=== PATIENT | female | born 1995 | race Caucasian/White ===

== ENCOUNTER 2021-10-13 12:25 | Outpatient (REF) | payer OTHER, SELFPAY | END 2021-10-13 12:26 | disposition home or self-care (01) | LOC: HO.LAB 12:25 | PROVIDERS: Visit Provider Internal Medicine | DX: Z20.822 Contact with and (suspected) exposure to COVID-19 (principal) | CPT/HCPCS: C9803; U0003; U0005 ==

== ENCOUNTER 2022-05-26 13:55 | Outpatient (REF) | payer OTHER, SELFPAY ==
[2022-05-26 18:21] LABS: CT PCR NOT DETECTED (Not Detect.); NG PCR NOT DETECTED (Not Detect.)
== END 2022-05-26 13:56 | disposition home or self-care (01) ==
LOC: HO.LAB 13:55
PROVIDERS: Visit Provider Advanced Practice Midwife
DX: Z01.419 Encounter for gynecological examination (general) (routine) without abnormal findings (principal); Z11.3 Encounter for screening for infections with a predominantly sexual mode of transmission; Z11.8 Encounter for screening for other infectious and parasitic diseases
CPT/HCPCS: 87491; 87591; 88142

== ENCOUNTER 2022-09-20 12:23 | Outpatient (REF) | payer OTHER, SELFPAY ==
--- NOTE | ~2022-09-20 | XR_ITS ---
EXAMINATION: XR HAND WRIST, RIGHT XR HAND WRIST, LEFT CLINICAL INFORMATION: R20.2 - Paresthesia of skin COMPARISON: None. TECHNIQUE: Right hand and wrist are imaged in 3 large [id number]-[id number]-zqeh images. The right wrist is also imaged in a navicular view. There are a total of 4 projections. Left hand and wrist are imaged in 3 large [id number]-qg-svbv images. The left wrist is also imaged in a navicular view. There are a total of 4 projections. FINDINGS: Right: Normal bony mineralization. No periarticular demineralization. Ulnar variance is neutral. Pronator quadratus fat pad appears normal. The carpus shows no joint narrowing or erosive change or chondrocalcinosis. The MCP and interphalangeal joints are unremarkable. Left: Normal bony mineralization. No periarticular demineralization. Ulnar variance is neutral. Pronator quadratus fat pad appears normal. The carpus shows no joint narrowing or erosive change or chondrocalcinosis. The MCP and interphalangeal joints are unremarkable. XR/XR hand wrist LT IMPRESSION: 1. Normal bilateral wrist and bilateral hands. 2. No joint narrowing or erosive changes.
--- NOTE | ~2022-09-20 | XR_ITS ---
EXAMINATION: XR HAND WRIST, RIGHT XR HAND WRIST, LEFT CLINICAL INFORMATION: R20.2 - Paresthesia of skin COMPARISON: None. TECHNIQUE: Right hand and wrist are imaged in 3 large mitdb-pi-tzwn images. The right wrist is also imaged in a navicular view. There are a total of 4 projections. Left hand and wrist are imaged in 3 large [id number]-cg-hlps images. The left wrist is also imaged in a navicular view. There are a total of 4 projections. FINDINGS: Right: Normal bony mineralization. No periarticular demineralization. Ulnar variance is neutral. Pronator quadratus fat pad appears normal. The carpus shows no joint narrowing or erosive change or chondrocalcinosis. The MCP and interphalangeal joints are unremarkable. Left: Normal bony mineralization. No periarticular demineralization. Ulnar variance is neutral. Pronator quadratus fat pad appears normal. The carpus shows no joint narrowing or erosive change or chondrocalcinosis. The MCP and interphalangeal joints are unremarkable. XR/XR hand wrist RT IMPRESSION: 1. Normal bilateral wrist and bilateral hands. 2. No joint narrowing or erosive changes.
[2022-09-20 14:18] LABS: Hematocrit 40.2 % (37.0-47.0); Hemoglobin 12.9 g/dl (12.0-16.0); Mean Corpuscular HGB Conc 32.1 g/dl (31.0-35.0); Mean Corpuscular Hemoglobin 27.5 pg (27.0-33.0); Mean Corpuscular Volume 85.7 fL (80.0-98.0); Platelet Count 437 X10*3/uL (160-400); Red Blood Count 4.69 X10*6/uL (4.20-5.50); Red Cell Distribution Width 12.9 % (11.0-16.0)
[2022-09-20 14:52] LABS: Alanine Aminotransferase 15 U/L (0-31); Alkaline Phosphatase 88 U/L (39-117); Anion Gap 12 (12-20); Aspartate Amino Transferase 18 U/L (5-31); Bilirubin Total 0.4 mg/dL (0.0-1.0); Blood Urea Nitrogen 11 mg/dL (9-16); Calcium 9.2 mg/dL (8.4-10.2); Carbon Dioxide 26 mmol/L (22-29); Chloride 104 mmol/L (96-108); Estimated Glomerular Filt Rate > 60; Glucose Fasting 92 mg/dL (60-99); Potassium 4.3 mmol/L (3.3-5.1); Sodium 138 mmol/L (135-145); Total Protein 7.7 g/dL (6.5-8.0)
== END 2022-09-20 12:24 | disposition home or self-care (01) ==
LOC: HO.XRAY 12:23
PROVIDERS: PCP Physician Assistant; Visit Provider Physician Assistant
DX: M25.531 Pain in right wrist (principal); M25.532 Pain in left wrist; R20.2 Paresthesia of skin; Z13.1 Encounter for screening for diabetes mellitus; Z13.29 Encounter for screening for other suspected endocrine disorder
CPT/HCPCS: 36415; 73110; 73130; 80053; 84443; 85027

== ENCOUNTER → 2022-10-16 10:28 | Outpatient (BNVA) | payer OTHER, SELFPAY | PROVIDERS: PCP Physician Assistant; Visit Provider Orthopaedic Surgery | DX: M25.531 Pain in right wrist (principal); M25.532 Pain in left wrist; M79.641 Pain in right hand; M79.642 Pain in left hand | CPT/HCPCS: 99202 ==

== ENCOUNTER 2022-11-23 10:30 | Outpatient (RCR) | payer OTHER, SELFPAY ==
--- NOTE | 2022-10-26 13:43 | MHC.OT.EP ---
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 Thank you once again for your referral.
--- NOTE | 2022-11-23 17:10 | MHC.OT.DC ---
[address] [phone] F: [phone] Occupational Therapy Discharge Note Provider: Haydee Noel Diagnosis: Bilateral hand and wrist pain Date of Surgery: Date of Evaluation: 10/26/22 Date of Discharge: 11/23/22 Treatments to Date: 8 Cancellations to Date: 0 No Shows to Date: 0 Discharge Status: Achieved Goals Improved Function Independent with HEP Discharge Summary: Right hand edema improved and pain. 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 Electronically Signed By: Aleshia Piedra OT CHT CLT Reviewed/agree with student documentation: N/A Therapist: Please Sign and return to therapist, thank you for your referral.
== END 2022-11-23 17:11 | disposition home or self-care (01) ==
LOC: HO.OT 10:30
PROVIDERS: PCP Physician Assistant; Visit Provider Orthopaedic Surgery
DX: M25.531 Pain in right wrist (principal); M25.532 Pain in left wrist; M79.642 Pain in left hand; M79.641 Pain in right hand
CPT/HCPCS: 29125; 97035; 97110; 97140; 97166; 97760

== ENCOUNTER 2023-05-29 12:54 | Outpatient (REF) | payer OTHER, SELFPAY ==
[2023-05-29 18:41] LABS: CT PCR NOT DETECTED (Not Detect.); NG PCR NOT DETECTED (Not Detect.)
== END 2023-05-29 12:55 | disposition home or self-care (01) ==
LOC: HO.LNP 12:54
PROVIDERS: PCP Physician Assistant; Visit Provider Advanced Practice Midwife
DX: Z20.2 Contact with and (suspected) exposure to infections with a predominantly sexual mode of transmission (principal); N92.6 Irregular menstruation, unspecified; Z72.51 High risk heterosexual behavior
CPT/HCPCS: 0353U; 81025

== ENCOUNTER 2023-05-29 12:54 | Outpatient (AMB) | payer OTHER, SELFPAY ==
--- NOTE | 2023-05-29 12:55 | A.OFFVIS_ITS ---
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 Scribed for LUCY Barksdale by Lashell Albarado medical social consultant, on 05/29/2023 at 1:13 pm EST. [employer] P[employer] Manufacturing Supervisor: Corn[employer] Manufacturing Supervisor Present (Nikki) Allergies ziprasidone [Geodon] Adverse Reaction (Unknown, Verified 05/29/23 12:59) mouth get stuck open Is last menstrual period known: Yes Last menstrual period: 05/21/23 HPI HPI Comments History of Present Illness Details She is a premenopausal woman presenting for annual exam. She admits to eating healthy and tries to stay active with exercise. Reports irregular menses that skipped twice for 2 months and painful menses. Admits to acne. Denies hirsutism, vaginal itching and irritation. Currently sexually active. Does not use BC and is not interest in BC or at the moment, accepting if she is . Denies taking PNV. STD screening offered; she accepts. Denies family hx of breast, colon and ovarian cancer. Last pap smear 05/26/22 [facility] Medical History Acne CHRISTY (generalized anxiety disorder) History of unprotected sex Irregular menses MDD (major depressive disorder), recurrent episode, moderate Obese Potential exposure to STD Surgical History History of dental surgery Family History Father No problems noted. 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 Sexual orientation: Straight/Heterosexual Gender identity: Female Cognitive needs: No Hearing needs: No Vision needs: Yes (glasses) Female Reproductive History Menstrual Age of Menarche: 13 Duration of menses: 3-5 days Date of last menstrual period: 05/21/23 control method: none Total pregnancies: 0 Date of last pap smear: 05/26/22 (neg) Physical Exam Vital Signs: Last Vital Signs BP 120/72 05/29/23 12:56 BMI result Body Mass Index 37.3 Const General: cooperative, healthy appearing, no acute distress, well developed and alert Orientation/consciousness: patient oriented x3 HEENT Head: Yes normal to inspection Eyes General: appearance normal, both eyes and all related structures Neck Neck: Yes normal visual inspection Thyroid: Thyroid normal Chest Chest palpation & inspection: normal inspection of the chest Breast/axilla inspection: normal inspection of the breasts (no puckering, dimpling, peau de orange, retraction, discharge, masses) Breast/axilla palpation: normal palpation of the breasts Resp Effort & Inspection: normal respiratory effort GI Inspection: Yes normal to inspection Palpation (GI): Soft to palpation (to palpation) Rectal Exam - Female: deferred General: Yes bladder normal to inspection External Female Exam: normal external appearance and normal appearance of the urethra Speculum Exam - Vagina: normal appearance of the vagina, normal palpation and normal vaginal discharge Speculum Exam - Cervix: normal appearance of the cervix and normal palpation Bimanual exam- vagina & uterus: normal palpation and normal palpation Bimanual Exam- Adnexa, other: normal adnexae and no masses Skin General skin exam: no rashes or lesions noted Neuro General: patient oriented x3 Cognition (Neuro): normal cognition Extrem General: Yes normal to inspection Psych Attitude: cooperative Thought process: Normal thought process present Results AMB Test Urine AMB Test Urine Negative Last Edit by SKINNY Walker on 05/29/23 13:36 Results Reviewed Results Reviewed: Laboratory Last Values Tst Clinic Negative 05/29/23 13:22 Assessment & Plan Assessment & Plan (1) Encounter for well woman exam: Code(s): Z01.419 - Encounter for gynecological examination (general) (routine) without abnormal findings Plan: Discussed: Current recommendations for pap smears per ASCCP guidelines Breast awareness and periodic self breast exams. Maintaining a healthy lifestyle including a well balanced diet and routine exercise. BV testing and GC/CT panel done today. Await results and treat accordingly. Blood work and US ordered. PCOS testing due to irregular menses and acne. Discussed workup including labs and US to rule out PCOS. She is agreeable to plan. Labs and US ordered today. Will await results and treat accordingly. Return in 2 weeks for test results. PNV sent to pharmacy. Encouraged to use condoms for STD and prevention. Encouraged patient to sign up for patient portal. All of her questions and concerns were addressed to the best of my ability. RTO in one year for AG. (2) Acne: Code(s): L70.9 - Acne, unspecified (3) Irregular menses: Code(s): N92.6 - Irregular menstruation, unspecified (4) Potential exposure to STD: Code(s): Z20.2 - Contact with and (suspected) exposure to infections with a predominantly sexual mode of transmission (5) History of unprotected sex: Code(s): Z72.51 - High risk heterosexual behavior Orders: Orders CT NG by PCR Today Z20.2 - Contact with and (suspected) exposure to infections with a predominantly sexual mode of transmission 17 Hydroxyprogesterone Today L70.9 - Acne, unspecified, N92.6 - Irregular menstruation, unspecified DHEA Sulfate Today L70.9 - Acne, unspecified, N92.6 - Irregular menstruation, unspecified Follicle Stimulating Hormone Today L70.9 - Acne, unspecified, N92.6 - Irregular menstruation, unspecified HCG Quantitative Today L70.9 - Acne, unspecified, N92.6 - Irregular menstruation, unspecified Prolactin Today L70.9 - Acne, unspecified, N92.6 - Irregular menstruation, unspecified Testosterone, Free/Total Today L70.9 - Acne, unspecified, N92.6 - Irregular menstruation, unspecified US pelvic and transvaginal Today L70.9 - Acne, unspecified, N92.6 - Irregular menstruation, unspecified AMB HCG Urine Test Today N92.6 - Irregular menstruation, unspecified Coding Level of Care Code Est Pt Prev Care 18-39y(86162) Diagnoses Encounter for well woman exam Z01.419 Acne L70.9 Irregular menses N92.6 Potential exposure to STD Z20.2 History of unprotected sex Z72.51
[2023-05-29 12:56] VITALS: BP 120/72; BMI 37.3
== END 2023-05-29 13:41 | disposition home or self-care (01) ==
LOC: HO.HWS 12:54
PROVIDERS: PCP Physician Assistant; Visit Provider Advanced Practice Midwife
DX: Z01.419 Encounter for gynecological examination (general) (routine) without abnormal findings (principal); L70.9 Acne, unspecified; N92.6 Irregular menstruation, unspecified; Z20.2 Contact with and (suspected) exposure to infections with a predominantly sexual mode of transmission; Z72.51 High risk heterosexual behavior
CPT/HCPCS: 99395

== ENCOUNTER 2023-06-12 10:35 | Outpatient (REF) | payer OTHER, SELFPAY ==
--- NOTE | ~2023-06-12 | US_ITS ---
EXAMINATION: US PELVIS CLINICAL INFORMATION: Irregular menses. COMPARISON: None available. TECHNIQUE: Ultrasound of the pelvis is performed using both transabdominal and transvaginal transducers along with Doppler. Transvaginal imaging is performed due to inadequate visualization transabdominally. FINDINGS: UTERUS: The uterus is anteverted and measures 5.9 x 2.7 x 3.7 cm. The double wall endometrial thickness is 0.6 mm. There is a 2.2 x 1.9 x 1.9 cm mural/submucosal fibroid draping the endometrial cavity forward. ADNEXA: Both ovaries are visualized and appear normal. There is normal color flow to the adnexa. There is no ovarian torsion. There is no pelvic ascites or fluid collection. Right ovary measures 3.3 x 2.2 x 2.2 cm for a volume of 8.4 mL. Left ovary measures 2.5 x 1.8 x 2.5 cm for a volume of 5.9 mL. US/US pelvic and transvaginal IMPRESSION: Submucosal 2.2 cm fibroid.
== END 2023-06-12 10:36 | disposition home or self-care (01) ==
LOC: HO.US 10:35
PROVIDERS: PCP Physician Assistant; Visit Provider Advanced Practice Midwife
DX: N92.6 Irregular menstruation, unspecified (principal); L70.9 Acne, unspecified
CPT/HCPCS: 76830; 76856

== ENCOUNTER 2023-07-31 12:40 | Outpatient (AMB) | payer OTHER, SELFPAY ==
--- NOTE | 2023-07-31 13:02 | A.OFFVIS_ITS ---
Intake Vital Signs 07/31/23 13:03 Height 5 ft Weight 190 lb BMI 37.1 BP 120/72 Intake Visit Reasons: Ultrasound results Intake Note: The patient agreed to use of a anesthesiology medical doctor during this encounter. Scribed for LUCY Barksdale by Lashell Albarado anesthesiology medical doctor, on 07/31/2023 at 1:12 pm EST. Allergies ziprasidone [Geodon] Adverse Reaction (Unknown, Verified 07/31/23 13:05) mouth get stuck open Is last menstrual period known: Yes Last menstrual period: 05/21/23 HPI HPI Comments History of Present Illness Details She is here to discuss US results regarding irregular menses. Reports last menses was May. She has no questions or concerns today. Not on BC, prefers not to take any. She has not completed her labs, unaware that they were to be done already. [facility] Medical History Fibroids, submucosal History of unprotected sex Potential exposure to STD Irregular menses Acne CHRISTY (generalized anxiety disorder) MDD (major depressive disorder), recurrent episode, moderate Obese Surgical History History of dental surgery Family History Father No problems noted. 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 COMPARISON: None available. TECHNIQUE: Ultrasound of the pelvis is performed using both transabdominal and transvaginal transducers along with Doppler. Transvaginal imaging is performed due to inadequate visualization transabdominally. FINDINGS: UTERUS: The uterus is anteverted and measures 5.9 x 2.7 x 3.7 cm. The double wall endometrial thickness is 0.6 mm. There is a 2.2 x 1.9 x 1.9 cm mural/submucosal fibroid draping the endometrial cavity forward. ADNEXA: Both ovaries are visualized and appear normal. There is normal color flow to the adnexa. There is no ovarian torsion. There is no pelvic ascites or fluid collection. Right ovary measures 3.3 x 2.2 x 2.2 cm for a volume of 8.4 mL. Left ovary measures 2.5 x 1.8 x 2.5 cm for a volume of 5.9 mL. US/US pelvic and transvaginal IMPRESSION: Submucosal 2.2 cm fibroid. Assessment & Plan Assessment & Plan (1) Encounter to discuss test results: Code(s): Z71.2 - Person consulting for explanation of examination or test findings Plan: Discussed: US findings of; fibroid. Labs today incl: BHCG. Schedule follow up appt. for lab results. All of her questions and concerns were addressed to the best of my ability and shared decision making. She is agreeable to plan of care. (2) Fibroids, submucosal: Code(s): D25.0 - Submucous leiomyoma of uterus Plan: Leiomyoma: common pelvic neoplasm. Differential diagnosis-may include leiomyosarcoma which is a rare uterine sarcoma 3-7/100,000, difficult to distinguish from fibroids on ultrasound from uterine sarcoma's. Unlikely any single test will have a highly positive predictive value. Hysterectomy is not recommended for sole purpose of excluding malignant neoplasm. Report any PMB/AUB, pelvic pressure, bloating, or pain. (3) Irregular menses: Code(s): N92.6 - Irregular menstruation, unspecified Plan: Lab work ordered. Follow up for results. Coding Level of Care Code Est Pt Level 3 (18276) Diagnoses Encounter to discuss test results Z71.2 Fibroids, submucosal D25.0 Irregular menses N92.6
[2023-07-31 13:03] VITALS: BP 120/72; BMI 37.1
== END 2023-07-31 13:22 | disposition home or self-care (01) ==
PROVIDERS: PCP Physician Assistant; Visit Provider Advanced Practice Midwife
DX: Z71.2 Person consulting for explanation of examination or test findings (principal); D25.0 Submucous leiomyoma of uterus; N92.6 Irregular menstruation, unspecified
CPT/HCPCS: 99213

== ENCOUNTER 2023-07-31 12:40 | Outpatient (REF) | payer OTHER, SELFPAY ==
[2023-07-31 15:23] LABS: HCG Quantitative < 2 mIU/mL
[2023-08-02 04:42] LABS: DHEA Sulfate 199 mcg/dL (14-349); Follicle Stimulating Hormone 7.6 mIU/mL; Prolactin 8.3 ng/mL
[2023-08-05 16:24] LABS: Testosterone, Free 6.4 pg/mL (0.1-6.4); Testosterone, Total 27 ng/dL (2-45)
== END 2023-07-31 12:41 | disposition home or self-care (01) ==
LOC: HO.LAB 12:40
PROVIDERS: PCP Physician Assistant; Visit Provider Advanced Practice Midwife
DX: D25.0 Submucous leiomyoma of uterus (principal); N92.6 Irregular menstruation, unspecified; L70.9 Acne, unspecified
CPT/HCPCS: 36415; 82627; 83001; 83498; 84146; 84402; 84403; 84702; 99212

== ENCOUNTER 2023-08-22 07:24 | Outpatient (AMB) | payer OTHER, SELFPAY ==
[2023-08-22 07:29] VITALS: BP 118/66; BMI 37.0
--- NOTE | 2023-08-22 07:29 | A.OFFVIS_ITS ---
Intake Vital Signs 08/22/23 07:29 Height 5 ft Weight 189 lb 9.561 oz BMI 37.0 BP 118/66 Intake Visit Reasons: lab follow up [employer] Combination [employer] Required: No Information Interpreted: non-clinical & clinical Accompanied by: Self / Same As Patient Allergies ziprasidone [Geodon] Adverse Reaction (Unknown, Verified 08/22/23 07:29) mouth get stuck open HPI HPI Comments History of Present Illness Details She is here to discuss lab results. Reports she is not skipping her cycles for now for the past three months. Currently occasionally sexually active but has not been sexually active in the past few months. Reports irregular cycles over the last 2-3 years, correlating to her weight gain, overeating, unhealthy food choices with her stress. Reports she has a follow up with her PCP and is doing lab work in a couple of weeks. She is not interested in any hormone use at this time. [facility] Medical History Stress Fibroids, submucosal History of unprotected sex Potential exposure to STD Irregular menses Acne CHRISTY (generalized anxiety disorder) MDD (major depressive disorder), recurrent episode, moderate Obese Surgical History History of dental surgery Family History Father No problems noted. 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 Sexual orientation: Straight/Heterosexual Gender identity: Female Cognitive needs: No Hearing needs: No Vision needs: Yes (glasses) Female Reproductive History Menstrual Age of Menarche: 13 Physical Exam Vital Signs: Last Vital Signs BP 118/66 08/22/23 07:29 BMI result Body Mass Index 37.0 Const General: cooperative, healthy appearing, comfortable, no acute distress, well developed, alert and awake Results AMB Test Urine AMB Test Urine Negative Last Edit by SKINNY Darling on 08/22/23 08:15 Results Reviewed Results Reviewed: Laboratory Last Values Tst Clinic Negative 08/22/23 08:15 EXAMINATION: US PELVIS CLINICAL INFORMATION: Irregular menses. COMPARISON: None available. TECHNIQUE: Ultrasound of the pelvis is performed using both transabdominal and transvaginal transducers along with Doppler. Transvaginal imaging is performed due to inadequate visualization transabdominally. FINDINGS: UTERUS: The uterus is anteverted and measures 5.9 x 2.7 x 3.7 cm. The double wall endometrial thickness is 0.6 mm. There is a 2.2 x 1.9 x 1.9 cm mural/submucosal fibroid draping the endometrial cavity forward. ADNEXA: Both ovaries are visualized and appear normal. There is normal color flow to the adnexa. There is no ovarian torsion. There is no pelvic ascites or fluid collection. Right ovary measures 3.3 x 2.2 x 2.2 cm for a volume of 8.4 mL. Left ovary measures 2.5 x 1.8 x 2.5 cm for a volume of 5.9 mL. US/US pelvic and transvaginal IMPRESSION: Submucosal 2.2 cm fibroid. Laboratory Tests 07/31/23 13:35 FSH 7.6 Prolactin 8.3 Total Testosterone 27 Fr Testosterone Dialys 6.4 DHEA Sulfate 199 Beta HCG, Quant < 2 17-Hydroxyprogesterone 24 Assessment & Plan Assessment & Plan (1) Encounter to discuss test results: Code(s): Z71.2 - Person consulting for explanation of examination or test findings Plan: Discussed: Lab results: normal. Will need a TSH and CBC, agree's to complete with her PCP in a few weeks. US results: Submucosal 2.2 cm fibroid. (2) Irregular menses: Code(s): N92.6 - Irregular menstruation, unspecified Plan: Counseled re: half-way effect of anovulatory cycles, risks to developing atypical cells, leading to hyperplasia and possible malignancy. Preventative measures for regular cycling included: control, hormones for intermittent use, other-weight management for ideal BMI goals, to include a healthy diet such as Mediterranean diet and regular exercise. Always use condoms for and STI prevention. Follow up for menses if no cycle q2-3months. She declines any medical/hormonal therapy today and prefers to start weight loss for results. (3) Weight gain: Code(s): R63.5 - Abnormal weight gain (4) Stress: Code(s): F43.9 - Reaction to severe stress, unspecified Orders: Orders AMB HCG Urine Test Today Z32.02 - Encounter for test, result negative Coding Level of Care Code Est Pt Level 3 (90832) Diagnoses Encounter to discuss test results Z71.2 Irregular menses N92.6 Weight gain R63.5 Stress F43.9
== END 2023-08-22 08:09 | disposition home or self-care (01) ==
PROVIDERS: PCP Physician Assistant; Visit Provider Advanced Practice Midwife
DX: Z71.2 Person consulting for explanation of examination or test findings (principal); N92.6 Irregular menstruation, unspecified; R63.5 Abnormal weight gain; F43.9 Reaction to severe stress, unspecified; Z32.02 Encounter for pregnancy test, result negative
CPT/HCPCS: 99213

== ENCOUNTER → 2023-08-22 07:24 | Outpatient (BNVA) | payer OTHER, SELFPAY | PROVIDERS: PCP Physician Assistant; Visit Provider Advanced Practice Midwife | DX: Z71.2 Person consulting for explanation of examination or test findings (principal); N92.6 Irregular menstruation, unspecified; R63.5 Abnormal weight gain; F43.9 Reaction to severe stress, unspecified | CPT/HCPCS: 81025; 99212 ==

== ENCOUNTER 2023-11-09 09:37 | Outpatient (AMB) | payer OTHER, SELFPAY ==
--- NOTE | 2023-11-09 09:40 | MHC.OFFVIS ---
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 She started bleeding 10/27/2318-[id number]-[id number] bleeding heavy at time (thick pad change q 4hr.) heavy today. She denies any lightheadedness, dizziness, SOB. Has cramping, low back pain, Midol not helpful. [facility] Medical History Stress Fibroids, submucosal History of unprotected sex Potential exposure to STD Irregular menses Acne CHRISTY (generalized anxiety disorder) MDD (major depressive disorder), recurrent episode, moderate Obese Surgical History History of dental surgery Family History Father No problems noted. 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 Sexual orientation: Straight/Heterosexual Gender identity: Female Cognitive needs: No Hearing needs: No Vision needs: Yes (glasses) Female Reproductive History Menstrual Age of Menarche: 13 Review of Systems Const All systems reviewed & are unremarkable except as noted in HPI and below Physical Exam Vital Signs: Last Vital Signs BP 122/80 11/09/23 09:51 BMI result Body Mass Index 37.0 Const General: cooperative, healthy appearing and no acute distress Orientation/consciousness: patient oriented x3 GI Inspection: Yes normal to inspection Palpation (GI): Soft to palpation and Other GI palpation findings present (Nontender) Rectal Exam - Female: visual inspection normal General: Yes bladder normal to palpation External Female Exam: normal appearance of the urethra Speculum Exam - Vagina: normal appearance of the vagina, normal palpation, normal vaginal discharge and vaginal bleeding Speculum Exam - Cervix: normal appearance of the cervix and normal palpation Bimanual exam- vagina & uterus: normal bimanual exam, normal palpation, uterine size normal, bladder normal to palpation, normal palpation, uterine shape normal and non-tender Bimanual Exam- Adnexa, other: normal adnexae OB/external & speculum: vaginal bleeding Neuro General: patient oriented x3 Results AMB Test Urine AMB Test Urine Negative Last Edit by Meseret Cabrera CMA on 11/09/23 09:53 Assessment & Plan Assessment & Plan (1) Abnormal uterine bleeding (AUB): Code(s): N93.9 - Abnormal uterine and vaginal bleeding, unspecified Plan Discuss: Workup for AUB including repeat ultrasound, labs. PCOS workup in July was negative. Reviewed weight changes, stress factors for amenorrhea that can affect the menstrual cycle. Advised to try a ibuprofen 200 mg(3 tablets) every 6 hours with food to help with menstrual cramping while bleeding. She declines a prescription, reports she has this on hand at home. Reviewed warnings: Any prolonged heavy bleeding, lightheaded miss, dizziness shortness of breath, report to the emergency room immediately. Consider control for cycle control, plan further discussion at follow up. All of her questions and concerns were addressed to the best of my ability and shared decision making. She is agreeable to the plan of care. Orders: Orders Bacterial Vaginosis Panel Today N92.6 - Irregular menstruation, unspecified TSH reflex Free T4 Today N93.9 - Abnormal uterine and vaginal bleeding, unspecified Complete Blood Count no Diff Today N93.9 - Abnormal uterine and vaginal bleeding, unspecified AMB HCG Urine Test Today Z32.02 - Encounter for test, result negative CT NG by PCR Today N92.6 - Irregular menstruation, unspecified US pelvic and transvaginal Today D25.0 - Submucous leiomyoma of uterus, N93.9 - Abnormal uterine and vaginal bleeding, unspecified Coding Level of Care Code Est Pt Level 4 (51254) Diagnoses Abnormal uterine bleeding (AUB) N93.9
[2023-11-09 09:51] VITALS: BP 122/80; BMI 37.0
== END 2023-11-09 12:26 | disposition home or self-care (01) ==
LOC: HO.HWS 09:37
PROVIDERS: PCP Physician Assistant; Visit Provider Advanced Practice Midwife
DX: Z32.02 Encounter for pregnancy test, result negative (principal); N93.9 Abnormal uterine and vaginal bleeding, unspecified
CPT/HCPCS: 99214

== ENCOUNTER 2023-11-09 09:37 | Outpatient (REF) | payer OTHER, SELFPAY | END 2023-11-09 09:38 | disposition home or self-care (01) | LOC: HO.LNP 09:37 | PROVIDERS: PCP Physician Assistant; Visit Provider Advanced Practice Midwife | DX: Z32.02 Encounter for pregnancy test, result negative (principal); N93.9 Abnormal uterine and vaginal bleeding, unspecified | CPT/HCPCS: 81025; 99212 ==

== ENCOUNTER 2023-11-09 10:17 | Outpatient (REF) | payer OTHER, SELFPAY | END 2023-11-09 10:18 | disposition home or self-care (01) | LOC: HO.LAB 10:17 | PROVIDERS: PCP Physician Assistant; Visit Provider Advanced Practice Midwife | DX: N93.9 Abnormal uterine and vaginal bleeding, unspecified (principal); N92.6 Irregular menstruation, unspecified | CPT/HCPCS: 0353U; 84443; 85027; 87480; 87510; 87660 ==

== ENCOUNTER 2023-11-28 14:23 | Outpatient (REF) | payer OTHER, SELFPAY ==
--- NOTE | ~2023-11-28 | US_ITS ---
EXAMINATION: US PELVIS CLINICAL INFORMATION: Submucous leiomyoma of uterus LMP: 10/27/2023 COMPARISON: Pelvic ultrasound 06/12/2023 TECHNIQUE: Ultrasound of the pelvis is performed using both transabdominal and transvaginal transducers along with Doppler. Transvaginal imaging is performed due to inadequate visualization transabdominally. FINDINGS: Uterus: The uterus is anteverted and measures 7.3 x 3.5 x 4.6 cm. There is a 2.3 x 1.9 x 2.0 cm mural/submucosal fibroid impinging on the posterior wall of the endometrium. This appears to measure 2.2 x 1.9 x 1.9 cm. The endometrium measures 0.6 cm. Adnexa: Both ovaries are visualized. There is normal color flow to the adnexa. There is no ovarian torsion. There is no pelvic ascites or fluid collection. Both ovaries are normal in appearance Right ovary measures 3.2 x 1.9 x 2.2 cm. Volume 7.0 mL. Left ovary measures 2.7 x 2.2 x 1.7 cm. Volume 5.3 mL. US/US pelvic and transvaginal IMPRESSION: 1. 2.3 cm mural/submucosal fibroid impinging on the posterior wall of the endometrium. 2. Normal ovaries.
== END 2023-11-28 14:24 | disposition home or self-care (01) ==
LOC: HO.US 14:23
PROVIDERS: PCP Physician Assistant; Visit Provider Advanced Practice Midwife
DX: D25.0 Submucous leiomyoma of uterus (principal); N93.9 Abnormal uterine and vaginal bleeding, unspecified
CPT/HCPCS: 76830; 76856

== ENCOUNTER 2023-12-12 12:30 | Outpatient (AMB) | payer OTHER, SELFPAY ==
[2023-12-12 12:50] VITALS: BP 112/70; BMI 36.5
--- NOTE | 2023-12-12 12:50 | MHC.OFFVIS ---
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 History of uterine fibroid she reports her last period lasted approximately 3 weeks. She has not interested in control as she is planning a future . She has not currently taking vitamins. [facility] Medical History Stress Fibroids, submucosal History of unprotected sex Potential exposure to STD Irregular menses Acne CHRISTY (generalized anxiety disorder) MDD (major depressive disorder), recurrent episode, moderate Obese Surgical History History of dental surgery Family History Father No problems noted. 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 Sexual orientation: Straight/Heterosexual Gender identity: Female Cognitive needs: No Hearing needs: No Vision needs: Yes (glasses) Female Reproductive History Menstrual Age of Menarche: 13 Date of last menstrual period: 10/27/23 Review of Systems Const All systems reviewed & are unremarkable except as noted in HPI and below Endo Reports no additional complaints Physical Exam Vital Signs: Last Vital Signs BP 112/70 12/12/23 12:50 BMI result Body Mass Index 36.5 Const General: cooperative, healthy appearing and no acute distress Psych Appearance: well kempt Attitude: cooperative Thought process: Normal thought process present Assessment & Plan Assessment & Plan (1) Fibroids, submucosal: Comment: Counseled re: Leiomyoma: common pelvic neoplasm. Differential diagnosis-may include leiomyosarcoma which is a rare uterine sarcoma 3-7/100,000, difficult to distinguish from fibroids on ultrasound from uterine sarcoma's. Unlikely any single test will have a highly positive predictive value. Hysterectomy is not recommended for sole purpose of excluding malignant neoplasm. Report any AUB. Pelvic pressure, bloating, or pain. Expectant management follow up in yearly for stability. Code(s): D25.0 - Submucous leiomyoma of uterus (2) Encounter to discuss test results: Code(s): Z71.2 - Person consulting for explanation of examination or test findings Plan: See above note. (3) Abnormal uterine bleeding (AUB): Code(s): N93.9 - Abnormal uterine and vaginal bleeding, unspecified Plan: If elbert normal pattern continues may need to under an endometrial biopsy. Declines medical treatment at this point with the use of control. Plan Discussed: Monitor menstrual cycles, report any unscheduled bleeding, bleeding episodes <21 days apart or heavy/prolonged menstrual bleeding. If cycles skip greater than 2-3 months she would need to have medication: Prometrium for cycling while trying to conceive. If late for her menses advised to do a home test if positive follow up in the office for care. Importance of regular cycling discussed for the long-term prevention of endometrial cancer. Call the office for a follow up for any concerns if menses is not occurring on a regular basis. Rx for vitamins sent in. Strongly encouraged to continue with her healthy diet habits weight loss planning and to continue with regular exercise. Next follow-up is in May for her annual exam at that visit the ultrasound will be ordered for the six-month follow-up to check stability. All of her questions and concerns were addressed to the best of my ability and shared decision making. She is agreeable to the plan of care. This note is constructed using voice recognition software. While every effort has been made to ensure accuracy, cv tech errors may have been included. Medications: New PNV,calcium 98-hfgb-cydwm acid 27 mg iron- 1 mg ( Vitamins Plus Low Iron) 1 tab PO DAILY 90 tabs 4RF Coding Level of Care Code Est Pt Level 3 (93153) Diagnoses Fibroids, submucosal D25.0 Encounter to discuss test results Z71.2 Abnormal uterine bleeding (AUB) N93.9
== END 2023-12-12 14:05 | disposition home or self-care (01) ==
LOC: HO.HWS 12:30
PROVIDERS: PCP Physician Assistant; Visit Provider Advanced Practice Midwife
DX: D25.0 Submucous leiomyoma of uterus (principal); Z71.2 Person consulting for explanation of examination or test findings; N93.9 Abnormal uterine and vaginal bleeding, unspecified
CPT/HCPCS: 99213

== ENCOUNTER → 2023-12-12 12:30 | Outpatient (BNVA) | payer OTHER, SELFPAY | PROVIDERS: PCP Physician Assistant; Visit Provider Advanced Practice Midwife | DX: D25.0 Submucous leiomyoma of uterus (principal); N93.9 Abnormal uterine and vaginal bleeding, unspecified; Z71.2 Person consulting for explanation of examination or test findings | CPT/HCPCS: 99212 ==

== ENCOUNTER 2024-02-19 10:40 | Outpatient (AMB) | payer OTHER, SELFPAY ==
--- NOTE | 2024-02-19 10:47 | A.OFFPC_ITS ---
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 Accompanied by: Self / Same As Patient Allergies ziprasidone [Geodon] Adverse Reaction (Unknown, Verified 02/19/24 11:01) mouth get stuck open Medication List - Last Reconciled 02/19/24 by Srinivas Amanda PA-C PNV,calcium 01-yfgj-pgzuw acid 27 mg iron- 1 mg ( Vitamins Plus Low Iron) 1 tab PO DAILY Tobacco use date assessed: 02/19/24 Dental Screening Dental Screen Date: 02/19/24 Did you have a dental visit in the last 12 months?: Yes Did you have a dental problem in the last 6 months where you did not have access to dental care?: No Was dental information given to patient?: Patient has dentist HPI Annual Exam HPI Details Patient is a 29 y/o F here today for a PE visit. Patient has a pmhx significant for a Bipolar d/o, insomnia, Schitzophrenia , ADHD. 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 ? Bipolar disorder:? Currently not on any medication. No longer sees a mental health therapist or psychiatrist. She reports her mental health has been stable without medication. Was also given a diagnosis of schizophrenia many years ago though has not had any audio or visual hallucinations since moving to [place] from [place] 3 years ago. ? .. ? Vaccine: ,UTD with COVID vaccine, UTD With Tdap? DIRECTOR FOOD AND BEVERAGE: Has a uterine fibroid,?Followed by OBGYN here in [facility] Medical History Stress Fibroids, submucosal History of unprotected sex Potential exposure to STD Irregular menses Acne CHRISTY (generalized anxiety disorder) MDD (major depressive disorder), recurrent episode, moderate Obese Surgical History History of dental surgery Family History Father No problems noted. Mother Diabetes Bipolar 1 disorder Thyroid disease Rheumatoid arthritis Mental health disorder Cervical cancer Social History Housing: House Alcohol intake: never Patient Tobacco Use Status: Never used Tobacco e-Cigarette/Vaping Use: Never Used Second Hand Smoke Exposure: No service: No Current occupational status: employed Current occupation: [employer] Current occupational exposures/hazards: No Sexual orientation: Straight/Heterosexual Gender identity: Female Cognitive needs: No Hearing needs: No Vision needs: Yes (glasses) Female Reproductive History Menstrual Age of Menarche: 13 Questionnaire PHQ-9 Over the last 2 weeks, how often have you been bothered by any of the following problems? 1. Little interest or pleasure in doing things: not at all 2. Feeling down, depressed, or hopeless: not at all 3. Trouble falling or staying asleep, or sleeping too much: not at all 4. Feeling tired or having little energy: not at all 5. Poor appetite or overeating: not at all 6. Feeling bad about yourself - or that you are a failure or have let yourself or your family down: not at all 7. Trouble concentrating on things, such as reading the newspaper or watching television: not at all 8. Moving or speaking so slowly that other people could have noticed. Or the opposite - being so fidgety or restless that you have been moving around a lot more than usual: not at all 9. Thoughts that you would be better off or of hurting yourself in some way: not at all Total score: 0 Depression Screening Interpretation: Negative Depression Screening Done: Yes 15134 - PHQ-9 Billing: Yes Source: Developed by Drs. Mike Mclean, Sally Duval, Thomas Quintero and colleagues, with an educational elias from [employer]. Thrive Questionnaire Date Thrive assessed: 02/19/24 I am a: Patient What is your living situation today?: I have a steady place to live Within the past 12 months, did the food you bought not last and you didn't have the money to get more?: Never true Within the past 12 months, did you worry whether your food would run out before you got money to buy more?: Never true Do you have trouble paying for medicines?: No Do you have trouble getting transportation to medical appointments?: No Do you have trouble paying your heating and electricity bill?: No Do you have trouble taking care of your child, family member or friend?: No Do you have trouble with day-to-day activities such as bathing, preparing meals, shopping, managing finances, etc.?: No Are you currently unemployed and looking for a job?: No Are you interested in more education?: No Please select the resources that you would like help with: None Currently or been in a relationship where the following occur: no concerns reported THRIVE Score: 0 AUDIT C Alcohol Use Questionnaire (AUDIT-C) 1. How often do you have a drink containing alcohol?: Never Total Score: 0 CHRISTY-7 AMB Questionnaire CHRISTY-7 Date CHRISTY - 7 assessed: 02/19/24 Feeling nervous, anxious, or on edge: 1 = Several days Not being able to stop or control worryin = Not at all Worrying too much about different things: 1 = Several days Trouble relaxin = Not at all Being so restless that it is hard to sit still: 0 = Not at all Becoming easily annoyed or irritable: 1 = Several days Feeling afraid as if something awful might happen: 0 = Not at all Total CHRISTY-7 score (0-4 normal; 5-9 mild; 10-14 moderate; 15-21 severe): 3 Source: Developed by Drs. Mike Mclean, Sally Duval, Thomas Quintero and colleagues, with an educational elias from [employer]. CHRISTY-7 Assessment Billing CHRISTY-7 Assessment Tool: CHRISTY-7 Assessment 11435 Review of Systems Const Denies body aches, Denies chills, Denies excessive sweating, Denies fatigue, Denies fever(s) and Denies headache(s) Eyes Denies blurry vision ENT Denies dysphagia, Denies vertigo, Denies dizziness, Denies headache(s), Denies hearing loss and Denies tinnitus Card Denies chest pain, Denies chest pain with activity, Denies syncope, Denies irregular heart rhythm and Denies dyspnea Resp Denies chest congestion, Denies cough, Denies hemoptysis, Denies dyspnea and Denies wheezing GI Denies abdominal pain, Denies melena, Denies hematochezia, Denies coffee ground emesis, Denies dysphagia, Denies diarrhea, Denies nausea and Denies vomiting Denies urinary frequency, Denies dysuria, Denies urinary hesitancy and Denies urinary urgency Musc Denies arthralgias, Denies limited range of motion, Denies muscle cramps and Denies muscle weakness Skin/Breast Denies rash and Denies skin ulcer Neuro Denies Abnormal speech present, Denies confusion, Denies vertigo, Denies d izziness, Denies syncope, Denies headache(s), Denies memory loss and Denies seizure-like activity Psych Denies anxiety, Denies confusion, Denies depression, Denies memory loss, Denies panic attacks and Denies paranoia Endo Denies excessive sweating, Denies fatigue, Denies flushing, Denies polydipsia and Denies polyuria Aller/Immun Denies wheezing Physical exam (Primary Care) Vital Signs: Last Vital Signs BP 118/68 02/19/24 10:48 BMI result Body Mass Index 37.7 BMI Assessment/Plan discussion: High BMI High, discussed plan: lifestyle, weight reduction, dietary and physical activity Tobacco/Smoking Status: Tobacco use Status Tobacco use date assessed 02/19/24 02/19/24 10:48 Patient Tobacco Use Status Never used Tobacco 02/19/24 10:48 Tobacco use type 02/19/24 10:54 e-Cigarette/Vaping Use Never Used 02/19/24 10:48 PHQ-9: PHQ-9 Score PHQ-9: Total score 0 02/19/24 10:54 Depression Screening Interpretation: Negative Thrive Assessment: Date of Thrive Assessment Date Thrive assessed 02/19/24 02/19/24 10:54 Currently or been in a relationship where the following occur: no concerns reported Const Other: OBESE General: cooperative, comfortable, no acute distress, alert and awake; No confusion Orientation/consciousness: oriented to person, oriented to place, patient oriented x3 and No confusion HENMT Head: Yes normocephalic Ears: external ears normal and TM's normal bilaterally Face and sinus: No sinus tenderness Mouth: Normal oral and palatal mucosa present and tongue normal Teeth and gingiva: dentition normal and gingiva normal Throat: Yes posterior oropharynx normal, Yes tonsils normal and Yes uvula midline Eyes Conjunctivae: conjunctivae normal Sclerae: sclerae normal Pupils: Equal, round and reactive pupils present EOM: EOMs intact bilaterally Direct Ophthalmoscopy: No no photophobia Neck Neck: Yes no lymphadenopathy, No tender and Yes no JVD Thyroid: Thyroid normal Carotids: no bruits Chest Chest palpation & inspection: no tenderness Resp Effort & Inspection: normal respiratory effort, no audible wheezes, not labored and no stridor Auscultation: no crackles, no rales, no rhonchi and no wheezes Cardio Jugular venous distension: no JVD Rate: regular rate, not bradycardic and not tachycardic Rhythm: regular rhythm Bruits: no carotid bruits Peripheral pulses: Peripheral pulses 2+ throughout GI Inspection: Yes normal to inspection, No abdominal wall ecchymosis and No visible herniation Palpation (GI): Soft to palpation, nontender, no guarding, not rigid and No hepatosplenomegaly present Auscultation: normoactive bowel sounds General: Yes no CVA tenderness Back/Spine/Pelvis Back: no CVA tenderness and No back tenderness Cervical Spine: cervical ROM normal Thoracic/Lumbar Spine: thoracic and lumbar spine normal to inspection, straight leg raise negative bilaterally, No thoraco-lumbar ROM limited and No lumbar spinal tenderness Skin Lesions: no lesions Rashes: no rashes Wounds: no wounds Neuro General: oriented to person, oriented to place, patient oriented x3, CN's II-XI intact bilaterally and No confusion Cranial nerves: Yes Equal, round and reactive pupils present and Yes Normal accommodation reflex present Cognition (Neuro): normal cognition Speech: No Abnormal speech present Gait exam (Neuro): Normal gait present Motor exam (neuro): 5/5 motor strength present throughout Extrem Right upper extremity: full ROM; no cyanosis Left upper extremity: full ROM; no cyanosis Right lower extremity: no edema Left lower extremity: no edema Psych Appearance: grossly normal Mental Status: mental status grossly normal Affect: normal affect Attitude: cooperative Thought process: Normal thought process present Assessment and Plan Assessment & Plan (1) Annual physical exam: Code(s): Z00.00 - Encounter for general adult medical examination without abnormal findings (2) Bipolar 1 disorder, manic, mild: Code(s): F31.11 - Bipolar disorder, current episode manic without psychotic features, mild Plan: She feels her mental health is stable not on any medication. Has not had any manic episodes. Not seeing a mental health therapist or psychiatrist at this time. (3) MDD (major depressive disorder), recurrent episode, moderate: Code(s): F33.1 - Major depressive disorder, recurrent, moderate Plan: Patient's PHQ-9 0, does have history of depression. Not in any mental health medication at this time. Otherwise denies any SI or HI. (4) Screening for diabetes mellitus (DM): Code(s): Z13.1 - Encounter for screening for diabetes mellitus (5) Obese: Code(s): E66.9 - Obesity, unspecified Qualifiers: Obesity type: due to excess calories Obesity classification: adult class 1 (BMI 30 - 34.9) Serious obesity comorbidity presence: without serious comorbidity Body mass index: BMI 34.0-34.9 Qualified Code(s): E66.09 - Other obesity due to excess calories; Z68.34 - Body mass index [BMI] 34.0-34.9, adult Plan: Patient does understand her BMI is over 30 will work on being more physically active and adapting to better eating habits to reduce her weight (6) Schizophrenia in remission: Code(s): F20.9 - Schizophrenia, unspecified Plan: In remission. No further episodes auditory or visual hallucinations. Not on any medications at this time. (7) CHRISTY (generalized anxiety disorder): Code(s): F41.1 - Generalized anxiety disorder Plan: Patient's CHRISTY-7 score positive for mild anxiety which has been existing condition for her. She is able to manage her anxiety without medication at this time. Orders: Orders Comprehensive [place]. Panel Fast Today Z13.1 - Encounter for screening for diabetes mellitus Patient Instructions: Goals: Being more physically active and watching portion sizes, lose weight Barriers: Busy work and life style, willingness to being more physically active Coding Level of Care Code Est Pt Prev Care [id number]([id number]) Diagnoses Annual physical exam Z00.00 Bipolar 1 disorder, manic, mild F31.11 MDD (major depressive disorder), recurrent episode, moderate F33.1 Screening for diabetes mellitus (DM) Z13.1 Class 1 obesity due to excess calories without serious comorbidity with body mass index (BMI) of 34.0 to 34.9 in adult E66.09; Z68.34 Obesity type: due to excess calories Obesity classification: adult class 1 (BMI 30 - 34.9) Serious obesity comorbidity presence: without serious comorbidity Body mass index: BMI 34.0-34.9 Schizophrenia in remission F20.9 CHRISTY (generalized anxiety disorder) F41.1 Additional Codes CHRISTY-7 Assessment Billing - CHRISTY-7 Assessment Tool: CHRISTY-7 Assessment [id number] ([id number])
[2024-02-19 10:48] VITALS: BP 118/68; BMI 37.7
== END 2024-02-19 11:14 | disposition home or self-care (01) ==
PROVIDERS: Visit Provider Physician Assistant
DX: Z00.00 Encounter for general adult medical examination without abnormal findings (principal); F31.11 Bipolar disorder, current episode manic without psychotic features, mild; E66.09 Other obesity due to excess calories; Z68.34 Body mass index [BMI] 34.0-34.9, adult; F41.1 Generalized anxiety disorder
CPT/HCPCS: 99395

== ENCOUNTER 2024-06-04 13:03 | Outpatient (AMB) | payer OTHER, SELFPAY ==
--- NOTE | 2024-06-04 13:21 | A.OFFVIS_ITS ---
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 Doing well with concerns: LMP 02/11/24, spotted in April, passed tissue 05/29/24. Positive test today. She tries to eat healthy and stays active with exercise. History of uterine fibroids. She denies vaginal itching and irritation. STI screening offered; she accepts. Denies family history of breast, ovarian or colon cancer. Last pap smear 2021, negative. [facility] Medical History (Updated 06/04/24 @ 13:56 by Angie Otero CNM) Early stage of Stress Fibroids, submucosal History of unprotected sex Potential exposure to STD Irregular menses Acne CHRISTY (generalized anxiety disorder) MDD (major depressive disorder), recurrent episode, moderate Obese Surgical History History of dental surgery Family History Father No problems noted. Mother Diabetes Bipolar 1 disorder Thyroid disease Rheumatoid arthritis Mental health disorder Cervical cancer Social History Housing: House Alcohol intake: never Patient Tobacco Use Status: Never used Tobacco e-Cigarette/Vaping Use: Never Used Second Hand Smoke Exposure: No service: No Current occupational status: employed Current occupation: [employer] Current occupational exposures/hazards: No Sexual orientation: Straight/Heterosexual Gender identity: Female Cognitive needs: No Hearing needs: No Vision needs: Yes (glasses) Female Reproductive History Menstrual Age of Menarche: 13 Date of last menstrual period: 02/11/24 Total pregnancies: 0 Date of last pap smear: 05/26/22 (neg) Review of Systems Const All systems reviewed & are unremarkable except as noted in HPI and below Reports as per HPI Eyes Reports no additional complaints ENT Reports no additional complaints Card Reports no additional complaints Resp Reports no additional complaints GI Reports as per HPI and Reports no additional complaints Reports as per HPI Musc Reports no additional complaints Skin/Breast Reports as per HPI Neuro Reports no additional complaints Psych Reports no additional complaints Endo Reports no additional complaints Eliseo/Lymph Reports no additional complaints Aller/Immun Reports no additional complaints Physical Exam Vital Signs: Last Vital Signs BP 100/60 06/04/24 13:22 BMI result Body Mass Index 37.9 Const General: cooperative, healthy appearing, no acute distress, well developed and alert Orientation/consciousness: patient oriented x3 HEENT Head: Yes normal to inspection Eyes General: appearance normal, both eyes and all related structures Neck Neck: Yes normal visual inspection Thyroid: Thyroid normal Chest Chest palpation & inspection: normal inspection of the chest and other (no puckering, dimpling, peau de orange, retraction, discharge, masses) Breast/axilla inspection: normal inspection of the breasts Breast/axilla palpation: normal palpation of the breasts Resp Effort & Inspection: normal respiratory effort GI Inspection: Yes normal to inspection Palpation (GI): Soft to palpation Rectal Exam - Female: deferred General: Yes bladder normal to palpation External Female Exam: normal external appearance and normal appearance of the urethra Speculum Exam - Vagina: normal appearance of the vagina, normal palpation and normal vaginal discharge Speculum Exam - Cervix: normal appearance of the cervix, normal palpation and Other cervical findings present (Ectopy) Bimanual exam- vagina & uterus: normal bimanual exam, normal palpation, uterine size normal, bladder normal to palpation, normal palpation and non-tender Bimanual Exam- Adnexa, other: no masses Skin General skin exam: no rashes or lesions noted Rashes: no rashes Neuro General: patient oriented x3 Cognition (Neuro): normal cognition Extrem General: Yes normal to inspection Psych Attitude: cooperative Thought process: Normal thought process present Results AMB Test Urine AMB Test Urine Positive Last Edit by SKINNY Walker on 06/04/24 13:39 AMB Urinalysis, Automated UA Leukoctes 0.5 Jo/uL Last Edit by SKINNY Walker on 06/04/24 13:3 9 UA Nitrite Negative Last Edit by SKINNY Walker on 06/04/24 13:39 UA Urobilinogen 0.5 mg/dL Last Edit by Faith Brady, A on 06/04/24 13 :39 UA Protein 0 mg/dL Last Edit by Faith Brady, A on 06/04/24 13:39 UA pH 6.0 Last Edit by Faith Brady, A on 06/04/24 13:39 UA Blood 1 Azael/uL Last Edit by Faith Brady [facility] on 06/04/24 13:39 UA Specific [place] 1.020 Last Edit by Faith Brady, A on 06/04/24 13:39 UA Ketone Negative Last Edit by Faith Brady [facility] on 06/04/24 13:39 UA Bilirubin 0 mg/dL Last Edit by Faith Brady A on 06/04/24 13:39 UA Glucose 0 mg/dL Last Edit by Faith Brady [facility] on 06/04/24 13:39 Results Reviewed Results Reviewed: Laboratory Last Values Urine pH (Auto) 6.0 06/04/24 13:38 Specific [place] (Auto) 1.020 06/04/24 13:38 Urine Protein (Auto) 0 mg/dL 06/04/24 13:38 Glucose (UA)(Auto) 0 mg/dL 06/04/24 13:38 Urine Ketones (Auto) Negative 06/04/24 13:38 Urine Blood (Auto) 1 Azael/uL 06/04/24 13:38 Urine Nitrite (Auto) Negative 06/04/24 13:38 Urine Bilirubin (Auto) 0 mg/dL 06/04/24 13:38 Urine Urobilinogen (Auto) 0.5 mg/dL 06/04/24 13:38 Leukocyte Esterase (Auto) 0.5 Jo/uL 06/04/24 13:38 [facility]st Clinic Positive 06/04/24 13:38 Assessment & Plan Assessment & Plan (1) Encounter for well woman exam with routine gynecological exam: Code(s): Z01.419 - Encounter for gynecological examination (general) (routine) without abnormal findings Category: Medical (2) Early stage of : Code(s): Z34.90 - Encounter for supervision of normal , unspecified, unspecified trimester Category: Medical (3) Date of last menstrual period (LMP) unknown: Code(s): Z78.9 - Other specified health status Plan Discussed: Current recommendations for pap smears per ASCCP guidelines. Breast awareness and periodic breast exams. Maintain a healthy lifestyle including a well balanced diet and routine exercise. Use condoms for STI and prevention. Reviewed warnings for bleeding and when to call the office or go to the emergency room for immediate care. Plan beta HCG now, ultrasound-follow up pending results for plan of care. Patient verbalizes understanding and agrees to the plan of care. She was given opportunity to ask questions and all questions were answered to the best of my ability. RTO in one year for annual tablet repair examination. This note is constructed using voice recognition software. While every effort has been made to ensure accuracy, customer relations assistant errors may have been included. Orders: Orders AMB HCG Urine Test Today Z32.01 - Encounter for test, result positive AMB Urinalysis Automated Today R30.0 - Dysuria HCG Quantitative Today O20.0 - Threatened Bacterial Vaginosis Panel Today Z20.2 - Contact with and (suspected) exposure to infections with a predominantly sexual mode of transmission, Z34.90 - Encounter for supervision of normal , unspecified, unspecified trimes ter HCG Quantitative Today O20.0 - Threatened Complete Blood Count no Diff Today Z34.90 - Encounter for supervision of normal , unspecified, unspecified trimester, Z78.9 - Other specified health status Screen Today Z34.90 - Encounter for supervision of normal , unspecified, unspecified trimester, Z78.9 - Other specified health status CT NG by PCR Today Z20.2 - Contact with and (suspected) exposure to infections with a predominantly sexual mode of transmission, Z34.90 - Encounter for supervision of normal , unspecified, unspecified trimester Coding Level of Care Code Est Pt Prev Care [id number](87004) Diagnoses Encounter for well woman exam with routine gynecological exam Z01.419 Early stage of Z34.90 Date of last menstrual period (LMP) unknown Z78.9
[2024-06-04 13:22] VITALS: BP 100/60; BMI 37.9
== END 2024-06-04 14:02 | disposition home or self-care (01) ==
PROVIDERS: PCP Physician Assistant; Visit Provider Advanced Practice Midwife
DX: Z01.419 Encounter for gynecological examination (general) (routine) without abnormal findings (principal); Z34.90 Encounter for supervision of normal pregnancy, unspecified, unspecified trimester; Z78.9 Other specified health status; Z32.01 Encounter for pregnancy test, result positive; R30.0 Dysuria
CPT/HCPCS: 99395

== ENCOUNTER 2024-06-04 13:03 | Outpatient (REF) | payer OTHER, SELFPAY | END 2024-06-04 13:04 | disposition home or self-care (01) | LOC: HO.LAB 13:03 | PROVIDERS: PCP Physician Assistant; Visit Provider Advanced Practice Midwife | DX: Z34.90 Encounter for supervision of normal pregnancy, unspecified, unspecified trimester (principal) | CPT/HCPCS: 81003; 81025; 99395 ==

== ENCOUNTER 2024-06-04 14:02 | Outpatient (REF) | payer OTHER, SELFPAY | END 2024-06-04 14:03 | disposition home or self-care (01) | LOC: HO.LNP 14:02 | PROVIDERS: Visit Provider Advanced Practice Midwife | DX: Z13.89 Encounter for screening for other disorder (principal) ==

== ENCOUNTER 2024-06-04 14:22 | Outpatient (REF) | payer OTHER, SELFPAY ==
--- NOTE | ~2024-06-04 | US_ITS ---
EXAMINATION: US OBSTETRICAL ULTRASOUND CLINICAL INFORMATION: Dating/viability. COMPARISON: 11/28/2023 LMP: 02/11/2024. Gestational age by maternal dates is 16 weeks 2 days. Estimated date of delivery by maternal dates is 11/17/2024. TECHNIQUE: Transabdominal and endovaginal imaging of the pelvis was performed. FINDINGS: There is no intrauterine gestational sac. There is diffuse thickening and heterogeneity of the endometrium with cystic changes measuring up to 3.5 cm in thickness. There is internal color Doppler flow. MATERNAL ADNEXA: The right maternal ovary measures 2.9 x 2.0 x 1.4 cm. The left maternal ovary measures 3.2 x 2.3 x 2.4 cm. Complex cyst measuring 1.9 x 1.8 x 1.7 cm. Findings are overwhelmingly likely to represent a normal ovarian follicle. No follow-up imaging recommended. Trace maternal pelvic ascites. US/US OB pelvic and transvaginal IMPRESSION: No evidence of intrauterine gestational sac. Marked diffuse thickening of the endometrium measuring up to 3.5 cm. There are underlying cystic changes with internal color Doppler flow. Correlation should be made with quantitative hCG level. Molar should be considered.
[2024-06-04 15:07] LABS: HCG Quantitative 786 mIU/mL
[2024-06-04 15:48] LABS: Hematocrit 40.1 % (37.0-47.0); Hemoglobin 13.1 g/dl (12.0-16.0); Mean Corpuscular HGB Conc 32.7 g/dl (31.0-35.0); Mean Corpuscular Hemoglobin 27.6 pg (27.0-33.0); Mean Corpuscular Volume 84.6 fL (80.0-98.0); Mean Platelet Volume 9.9 fL (9.4-12.3); Platelet Count 486 X10*3/uL (160-400); Red Blood Count 4.74 X10*6/uL (4.20-5.50); Red Cell Distribution Width 13.9 % (11.0-16.0); White Blood Count 12.5 X10*3/uL (4.8-10.8)
[2024-06-05 04:13] LABS: CT PCR NOT DETECTED (Not Detect.); NG PCR NOT DETECTED (Not Detect.)
[2024-06-05 09:53] LABS: Bacterial Vaginosis PCR NEGATIVE (Negative); Candida Group PCR NOT DETECTED (Not Detect); Candida glab krusei PCR NOT DETECTED (Not Detect); Trichomonas vaginalis PCR NOT DETECTED (Not Detect)
== END 2024-06-04 14:23 | disposition home or self-care (01) ==
LOC: HO.US 14:22
PROVIDERS: PCP Physician Assistant; Visit Provider Advanced Practice Midwife
DX: Z78.9 Other specified health status (principal); Z20.2 Contact with and (suspected) exposure to infections with a predominantly sexual mode of transmission; O20.0 Threatened abortion
CPT/HCPCS: 0352U; 76801; 76817; 84702; 85027; 86850; 86900; 87491; 87591

== ENCOUNTER 2024-06-06 16:37 | Outpatient (REF) | payer OTHER, SELFPAY ==
[2024-06-06 19:17] LABS: Hematocrit 41.5 % (37.0-47.0); Hemoglobin 13.5 g/dl (12.0-16.0); Mean Corpuscular HGB Conc 32.5 g/dl (31.0-35.0); Mean Corpuscular Hemoglobin 27.6 pg (27.0-33.0); Mean Corpuscular Volume 84.9 fL (80.0-98.0); Mean Platelet Volume 9.9 fL (9.4-12.3); Platelet Count 503 X10*3/uL (160-400); Red Blood Count 4.89 X10*6/uL (4.20-5.50); Red Cell Distribution Width 13.9 % (11.0-16.0); White Blood Count 12.6 X10*3/uL (4.8-10.8)
[2024-06-06 19:37] LABS: Alanine Aminotransferase 39 U/L (0-31); Albumin Level 3.9 g/dL (3.5-5.0); Alkaline Phosphatase 85 U/L (39-117); Anion Gap 13 (12-20); Aspartate Amino Transferase 26 U/L (5-31); Bilirubin Total 0.5 mg/dL (0.0-1.0); Blood Urea Nitrogen 5 mg/dL (9-16); Calcium 9.3 mg/dL (8.4-10.2); Carbon Dioxide 23 mmol/L (22-29); Chloride 106 mmol/L (96-108); Estimated Glomerular Filt Rate > 60; Glucose Fasting 93 mg/dL (60-99); Potassium 3.6 mmol/L (3.3-5.1); Sodium 138 mmol/L (135-145); Total Protein 7.8 g/dL (6.5-8.0)
[2024-06-06 19:41] LABS: HCG Quantitative 2127 mIU/mL
[2024-06-06 19:54] LABS: TSH reflex Free T4 1.85 uIU/mL (0.32-4.0)
== END 2024-06-06 16:38 | disposition home or self-care (01) ==
LOC: HO.LAB 16:37
PROVIDERS: PCP Physician Assistant; Visit Provider Advanced Practice Midwife
DX: Z34.90 Encounter for supervision of normal pregnancy, unspecified, unspecified trimester (principal); E66.09 Other obesity due to excess calories; Z68.32 Body mass index [BMI] 32.0-32.9, adult
CPT/HCPCS: 36415; 80053; 84443; 84702; 85027

== ENCOUNTER 2024-06-14 07:22 | Outpatient (REF) | payer OTHER, SELFPAY ==
[2024-06-14 08:21] LABS: HCG Quantitative 13228 mIU/mL
== END 2024-06-14 07:23 | disposition home or self-care (01) ==
LOC: HO.LAB 07:22
PROVIDERS: PCP Physician Assistant; Visit Provider Advanced Practice Midwife
DX: O36.80X0 Pregnancy with inconclusive fetal viability, not applicable or unspecified (principal)
CPT/HCPCS: 36415; 84702

== ENCOUNTER 2024-06-20 11:13 | Outpatient (REF) | payer OTHER, SELFPAY ==
--- NOTE | ~2024-06-20 | US_ITS ---
EXAMINATION: US OBSTETRICAL ULTRASOUND CLINICAL INFORMATION: Evaluate status of . History of complications of . COMPARISON: Pelvic ultrasound from 06/04/2024. LMP: 02/11/2024. TECHNIQUE: Sonographic imaging of the pelvis is performed using transabdominal and transvaginal transducers. mineral technologist reports limitations of the examination due to patient body habitus. FINDINGS: A gestational sac is identified within the fundal portion of the endometrium. Embryo is 0.52 cm in length, corresponding to estimated gestational age of 6 weeks, 2 days. Estimated date of delivery of 02/11/2025. heart rate of 129 - 135 bpm. 0.3 cm yolk sac is seen. No subchorionic hemorrhage. No evidence of an adnexal mass. The ovaries are normal. The right ovary is 3.2 x 1.6 x 2.4 cm and left ovary 2.4 x 1.3 x 1.6 cm. No pelvic free fluid. US/US OB pelvic and transvaginal IMPRESSION: Single viable intrauterine gestation is present. The ultrasound estimated gestational age is 6 weeks, 2 days. 1
== END 2024-06-20 11:14 | disposition home or self-care (01) ==
LOC: HO.US 11:13
PROVIDERS: PCP Physician Assistant; Visit Provider Advanced Practice Midwife
DX: O26.21 Pregnancy care for patient with recurrent pregnancy loss, first trimester (principal); Z3A.01 Less than 8 weeks gestation of pregnancy
CPT/HCPCS: 76801; 76817

== ENCOUNTER 2024-06-23 10:52 | Outpatient (REF) | payer OTHER, SELFPAY | END 2024-06-23 10:53 | disposition home or self-care (01) | LOC: HO.US 10:52 | PROVIDERS: PCP Physician Assistant; Visit Provider Advanced Practice Midwife | DX: Z13.89 Encounter for screening for other disorder (principal) ==